=== PATIENT | female | born 1950 | race Caucasian/White ===

== ENCOUNTER 2018-05-08 08:42 | Outpatient (CLI) | payer MEDICARE, OTHER | END 2018-05-08 08:43 | disposition home or self-care (01) | LOC: BICMAMMO 08:42 | PROVIDERS: ATTEND Internal Medicine | DX: Z12.31 Encounter for screening mammogram for malignant neoplasm of breast (principal); R92.1 Mammographic calcification found on diagnostic imaging of breast; Z85.3 Personal history of malignant neoplasm of breast | CPT/HCPCS: 77063; 77067 ==

== ENCOUNTER 2019-05-11 08:17 | Outpatient (CLI) | payer MEDICARE, OTHER ==
--- NOTE | 2019-05-11 09:10 | MMO ---
Bilateral MAMMO Bilat Screen [facility]. CLINICAL HISTORY: Patient is 68 years old and is seen for screening. The patient has no family history of breast cancer. The patient has a history of malignant (generic) in the left breast 2007. The patient has a history of left Lumpectomy in November, - malignant. VIEWS: The views performed were: bilateral craniocaudal with tomosynthesis and bilateral mediolateral oblique with tomosynthesis. FILMS COMPARED: The present examination has been compared to prior imaging studies performed at [facility] on 04/28/2015, 05/07/2016, 05/07/2017 and 05/08/2018. MAMMOGRAM FINDINGS: There are scattered fibroglandular densities. There are no suspicious masses, suspicious calcifications, or new areas of architectural distortion. IMPRESSION: THERE IS NO MAMMOGRAPHIC EVIDENCE OF MALIGNANCY. A ROUTINE FOLLOW-UP MAMMOGRAM IN 1 YEAR IS RECOMMENDED. THE RESULTS OF THIS EXAM WERE SENT TO THE PATIENT. ACR BI-RADS Category 1 - Negative MAMMOGRAPHY NOTE: 1. A negative mammogram report should not delay a biopsy if a dominant of clinically suspicious mass is present. 2. Approximately 10% to 15% of breast cancers are not detected by mammography. 3. Adenosis and dense breasts may obscure an underlying neoplasm.
== END 2019-05-11 08:18 | disposition home or self-care (01) ==
LOC: BICMAMMO 08:17
PROVIDERS: ATTEND Internal Medicine
DX: Z12.31 Encounter for screening mammogram for malignant neoplasm of breast (principal); Z85.3 Personal history of malignant neoplasm of breast; Z90.12 Acquired absence of left breast and nipple
CPT/HCPCS: 77063; 77067

== ENCOUNTER 2019-10-12 09:09 | Outpatient (CLI) | payer MEDICARE, OTHER ==
--- NOTE | 2019-10-12 10:08 | BD ---
EXAM: Bone densitometry using DEXA HISTORY: 69 yo female. Screening for postmenopausal osteoporosis FINDINGS: L1--bone mineral density 1.183 g/sq cm; T score 1.8 ; Z score 3.6 L2--bone mineral density 1.212 g/sq cm; T score 1.7 ; Z score 3.7 L3--bone mineral density 1.421 g/sq cm; T score 3.1 ; Z score 5.2 L4--bone mineral density 1.498 g/sq cm; T score 4.0 ; Z score 6.2 Total L1-L4--bone mineral density 1.340 g/sq cm; T score 2.7 ; Z score 4.7 Left femoral neck--bone mineral density0.656; T score -1.7 ; Z score 0.0 Total proximal left femur--bone mineral density 0.801; T score -1.2 ; Z score 0.3 There has been an interval improvement of 0.5% in the BMD of the lumbar spine and a reduction of 1. 9% in the BMD of the proximal femur since the previous study of 02/23/2009. The 10 year fracture risk for a major osteoporotic fracture is 9.7% and for a hip fracture is 1.5%. IMPRESSION: Osteopenia
== END 2019-10-12 09:10 | disposition home or self-care (01) ==
LOC: BICMAMMO 09:09
PROVIDERS: ATTEND Internal Medicine
DX: Z13.820 Encounter for screening for osteoporosis (principal); M85.852 Other specified disorders of bone density and structure, left thigh; Z78.0 Asymptomatic menopausal state
CPT/HCPCS: 77080

== ENCOUNTER 2019-10-22 11:16 | Outpatient (CLI) | payer MEDICARE, OTHER ==
--- NOTE | 2019-10-22 12:03 | RAD ---
EXAM: XR Skull Min 4 View STANDARD DATE: 10/22/2019 12:00 AM INDICATION: Headache COMPARISON: None. FINDING: No acute fracture or subluxation demonstrated. No osteolytic or osteoblastic lesion is seen involving the skull. This shows paranasal sinuses are clear. IMPRESSION:No acute abnormality.
--- NOTE | 2019-10-22 12:04 | RAD ---
XR Cerv Sp Ap Lat STANDARD: 10/22/2019 12:00 AM CLINICAL HISTORY: Neck pain COMPARISON: None Bones: There is bulky marginal osteophytes seen involving multiple levels of the cervical spine anter iorly extending from C3 through C7. Intervertebral disc spaces and facet complexes: There is multilevel mild to moderate disc degenerativ e and facet osteoarthritic change. Spinal alignment: Within normal limits. Prevertebral soft tissues: There are bilateral carotid body calcifications. Lateral masses: Symmetric. Lung apices: Clear. Additional findings: None. IMPRESSION: Mild to moderate multilevel spondylosis of the cervical spine.
== END 2019-10-22 11:17 | disposition home or self-care (01) ==
LOC: BICRAD 11:16
PROVIDERS: ATTEND Internal Medicine
DX: M54.2 Cervicalgia (principal); R51 Headache; M47.812 Spondylosis without myelopathy or radiculopathy, cervical region
CPT/HCPCS: 70260; 72040